=== PATIENT | male | born 1970 | race Caucasian/White ===

== ENCOUNTER 2019-04-12 19:14 | Emergency (ER) | payer MEDICAID, OTHER ==
[~2019-04-12] VITALS: Ht 170.2 cm; Wt 81.6 kg
[2019-04-12 19:39] LABS: BASOPHILS # (AUTO) 0.3 /CMM (0.0-0.2); EOSINOPHILS % (AUTO) 4.5 % (0.0-6.0); HEMATOCRIT 33 % (39-51); HEMOGLOBIN 10.3 g/dL (13.5-17.5); LYMPHOCYTES # (AUTO) 1.8 /CMM (0.8-4.8); LYMPHOCYTES % (AUTO) 28.1 % (20.0-44.0); MEAN CORPUSCULAR HGB CONC 32 g/dl (31.0-36.0); MEAN CORPUSCULAR VOLUME 87 fL (80-96); MONOCYTES # (AUTO) 0.5 /CMM (0.1-1.30); MONOCYTES % (AUTO) 7.4 % (2.0-12.0); NEUTROPHILS # (AUTO) 3.6 /CMM (1.8-8.9); PLATELET COUNT (AUTO) 305 /CMM (150-450); RED BLOOD CELL COUNT(AUTO) 3.76 MIL/uL (4.5-6.0); WHITE BLOOD COUNT (AUTO) 6.5 K/uL (4.3-11.0)
[2019-04-12 19:45] LABS: CALCIUM, SERUM 8.2 mg/dL (8.5-10.1); CREATININE 0.8 mg/dL (0.6-1.3); POTASSIUM 3.5 mmol/L (3.5-5.1)
[2019-04-12 19:53] LABS: ALBUMIN 3.5 g/dL (3.4-5.0); BILIRUBIN,DIRECT 0.1 mg/dL (0.0-0.2); BILIRUBIN,TOTAL 0.2 mg/dL (0.2-1.0); SALICYLATE 3.6 mg/dL (2.8-20.0); TOTAL PROTEIN, SERUM 7.8 g/dL (6.4-8.2)
[2019-04-12 20:20] LABS: APPEARANCE,URINE Clear (CLEAR); BILIRUBIN,URINE Negative (NEGATIVE); BLOOD, URINE Negative Ery/uL (NEGATIVE); COLOR,URINE Yellow (YELLOW); KETONES,URINE Negative (NEGATIVE); LEUKOCYTE ESTERASE ,URINE Negative (NEGATIVE); NITRITE, URINE Negative (NEGATIVE); PH,URINE 6.5 (5.0-8.0); PROTEIN,URINE Negative (NEGATIVE); UGLUCOSE Negative (NEGATIVE); UROBILINOGEN,URINE 0.2 EU/dL (0.2)
--- NOTE | 2019-04-12 20:21 | NUR ---
URINE COLLECTED AND SENT TO LAB.
--- NOTE | 2019-04-12 20:48 | NUR ---
PTS BLACK BACKPACK PLACED IN UTILITY ROOM
--- NOTE | 2019-04-13 00:42 | NUR ---
Patient is resting comfortably in bed with eyes closed. Easily aroused. VSS. GIVEN FOOD AND DRINK. -ACUTE DISTRESS NOTED AT THIS TIME.
--- NOTE | 2019-04-13 02:11 | NUR ---
Patient is resting comfortably in bed with eyes closed. Easily aroused. VSS. -ACUTE DISTRESS NOTED AT THIS TIME.
--- NOTE | 2019-04-13 04:44 | NUR ---
Patient is resting comfortably in bed with eyes closed. Easily aroused. VSS. -SOB NOTED. AOX4.
--- NOTE | 2019-04-13 05:14 | NUR ---
PATIENT VERBALIZING "I WANT TO GO HOME, IM NOT SUICIDAL WHAT ARE YOU TALKING ABOUT" ER MD AWARE. PT ALERT ORIENTED X4. AMBULATORY WITHOUT ASSISTANCE.
--- NOTE | 2019-04-13 05:30 | NUR ---
Patient discharged to home in stable condition. Written and verbal after care instructions given. Patient verbalizes understanding of instruction. Pt ambulatory with a steady gait
[2019-04-13 06:17] VITALS: BP 142/78
== END 2019-04-13 05:32 | disposition home or self-care (01) ==
LOC: EDBD 19:16 → ER 19:16
DX: F10.129 Alcohol abuse with intoxication, unspecified (principal); Y90.8 Blood alcohol level of 240 mg/100 ml or more
CPT/HCPCS: 36415; 80048; 80076; 80305; 80307; 80329; 81001; 85025; 99283; G0480; 81000-TC

== ENCOUNTER 2019-04-15 00:16 | Emergency (ER) | payer MEDICAID ==
[~2019-04-15] VITALS: Ht 170.2 cm; Wt 81.6 kg
[2019-04-15] MEDS ORDERED: LORAZEPAM INJ 2 MG/ML VIAL ONE (00:25)
[2019-04-15] MEDS ORDERED: LORAZEPAM INJ 2 MG/ML VIAL IM ONE (00:30)
--- NOTE | 2019-04-15 00:37 | NUR ---
urine collected and sent to lab
--- NOTE | 2019-04-15 00:43 | NUR ---
PATIENT ANITA HORNE ESCORTED BY [employer] TO ER BED 9 FOR ETOH. PATIENT STATES THAT HE WANTS TO KILL HIMSELF. PATIENT CANNOT RECALL THE AMOUNT OF DRINKS HAD PRIOR TO BEING ARRESTED OFF THE STREETS. PATIENT DOES NOT HAVE A SUICIDAL PLAN. NO SOB. BREATHING EVENLY AND UNLABORED. CONNECTED TO MONITOR.
[2019-04-15 00:49] LABS: APPEARANCE,URINE Clear (CLEAR); BILIRUBIN,URINE Negative (NEGATIVE); BLOOD, URINE Negative Ery/uL (NEGATIVE); COLOR,URINE Light yellow (YELLOW); KETONES,URINE Negative (NEGATIVE); LEUKOCYTE ESTERASE ,URINE Negative (NEGATIVE); NITRITE, URINE Negative (NEGATIVE); PROTEIN,URINE Negative (NEGATIVE); UGLUCOSE Negative (NEGATIVE); UROBILINOGEN,URINE 0.2 EU/dL (0.2)
[2019-04-15 00:52] LABS: BASOPHILS # (AUTO) 0.2 /CMM (0.0-0.2); BASOPHILS % (AUTO) 2.6 % (0.0-2.0); EOSINOPHILS % (AUTO) 4.5 % (0.0-6.0); HEMATOCRIT 34 % (39-51); HEMOGLOBIN 10.7 g/dL (13.5-17.5); LYMPHOCYTES # (AUTO) 2.2 /CMM (0.8-4.8); LYMPHOCYTES % (AUTO) 31.5 % (20.0-44.0); MEAN CORPUSCULAR HGB CONC 32 g/dl (31.0-36.0); MEAN CORPUSCULAR VOLUME 86 fL (80-96); MONOCYTES # (AUTO) 0.7 /CMM (0.1-1.30); NEUTROPHILS # (AUTO) 3.6 /CMM (1.8-8.9); NEUTROPHILS % (AUTO) 51.4 % (43.0-81.0); PLATELET COUNT (AUTO) 277 /CMM (150-450); RED BLOOD CELL COUNT(AUTO) 3.94 MIL/uL (4.5-6.0); WHITE BLOOD COUNT (AUTO) 7.1 K/uL (4.3-11.0)
[2019-04-15 01:01] LABS: CALCIUM, SERUM 8.8 mg/dL (8.5-10.1); CREATININE 0.8 mg/dL (0.6-1.3); POTASSIUM 3.7 mmol/L (3.5-5.1)
--- NOTE | 2019-04-15 01:05 | NUR ---
PATIENT IS SLEEPING COMFORTABLY IN BED. CONNECTED TO MONITOR. DOES NOT APPEAR TO BE IN ANY DISTRESS. EASILY AROUSED BY TACTILE AND VERBAL STIMULI
[2019-04-15 01:13] LABS: ALBUMIN 3.7 g/dL (3.4-5.0); BILIRUBIN,DIRECT 0.1 mg/dL (0.0-0.2); BILIRUBIN,TOTAL 0.2 mg/dL (0.2-1.0); SALICYLATE 2.7 mg/dL (2.8-20.0); TOTAL PROTEIN, SERUM 8.2 g/dL (6.4-8.2)
--- NOTE | 2019-04-15 03:43 | NUR ---
PATIENT IS SLEEPING COMFORTABLY IN BED 9. EASILY AROUSABLE THROUGH TACTILE AND VERBAL STIMULI. BREATHING EVENLY AND UNLABORED. CONNECTED TO MONITOR.
--- NOTE | 2019-04-15 05:18 | NUR ---
patient is asleep. breathing evenly and unlabored. no sob not in any pain or distress. connected to monitor. call light within reach.
--- NOTE | 2019-04-15 07:23 | NUR ---
report given to Gary MARX for ANTWON.
--- NOTE | 2019-04-15 07:29 | NUR ---
ASSESSED PT ON BED ASLEEP, EASILY AROUSABLE, NOT IN RESPIRATORY DISTRESS, V/S STABLE, KEPT RESTED AND COMFORTABLE, WILL CONTINUE TO MONITOR.
--- NOTE | 2019-04-15 09:08 | NUR ---
PT ASSESSED ON BED EASILY AROUSABLE, NOT IN RESPIRATORY DISTRESS, V/S STABLE, UNABLE TO STAND AND WALK STRAIGHT MD AWARE, WILL CONTINUE TO MONITOR.
[2019-04-15 11:30] VITALS: BP 133/91
--- NOTE | 2019-04-15 11:30 | NUR ---
Patient given written and verbal discharge instructions. Patient verbalizes understanding of instructions. Patient is ambulatory with steady gait. Refuses offer of nursing home placement. Patient given list of available shelters in surrounding area.
== END 2019-04-15 11:32 | disposition home or self-care (01) ==
LOC: ER 00:19
DX: F10.129 Alcohol abuse with intoxication, unspecified (principal); Y90.8 Blood alcohol level of 240 mg/100 ml or more
CPT/HCPCS: 36415; 80048; 80076; 80305; 80307; 80329; 81001; 85025; 96372; 99283; G0480; J2060; 81000-TC

== ENCOUNTER 2020-01-28 18:43 | Inpatient (IN) | payer MEDICAID ==
[~2020-01-28] VITALS: Ht 175.3 cm; Wt 83.5 kg
--- NOTE | 2020-01-28 18:53 | NUR ---
INGESTION 5 HOURS + AT THE ARRIVAL TIME.... CALLED POISON CONTROL [phone] LISBETH OBSERVATION FOR 12 HOURS POST INGESTION. GET 2 EKG ONCE AT ARRIVAL AND IF NORMAL ONCE TOWARDS THE END OF STAY. IN HIGH DOSES LOOK FOR SEIZURE ACTIVITY, CAN BE TREATED WITH BENZO'S.
--- NOTE | 2020-01-28 18:54 | NUR ---
BIB [address] AND [employer] OFFICERS, PLACED ON HOLD BY PET TEAM FOR SI,TOOK 15 TABS OF LEXAPRO 5 HRS AGO(UNK DOSE) AND WANTS TO RUN INTO TRAFFIC, TO ER BED 14, HOOKED TO MONITOR, CHANGED TO HOSP GOWN, WARM BLANKET PROVIDED, PATIENT AAO x 4, BREATHING EVEN AND UNLABORED, SUICIDE PRECAUTIONS APPLIED. DR LUI AT BEDSIDE
--- NOTE | 2020-01-28 18:55 | NUR ---
1:1 SITTER AT BEDSIDE FOR SAFETY
--- NOTE | 2020-01-28 19:07 | NUR ---
SECURITY AT BEDSIDE FOR WANDING
--- NOTE | 2020-01-28 19:10 | NUR ---
CALLED FOR COVID SWAB
--- NOTE | 2020-01-28 19:17 | NUR ---
xray at bedside for xray
--- NOTE | 2020-01-28 19:20 | NUR ---
COVID SWAB COLLECTED, CALLED LAB FOR DINING CAR WAITER/WAITRESS
[2020-01-28] MEDS ORDERED: LORAZEPAM INJ 2 MG/ML VIAL ONE (19:22)
--- NOTE | 2020-01-28 19:23 | NUR ---
SPOKE TO PT REGARDING PROVIDING URINE SAMPLE, PT STATED UNABLE TO AT THE MOMENT.
[2020-01-28] MEDS ORDERED: LORAZEPAM INJ 2 MG/ML VIAL IV ONE (19:30)
[2020-01-28] MEDS ORDERED: IV NS 0.9% 1,000 ML BAG IV ONE (19:30)
[2020-01-28 19:31] LABS: BASOPHILS # (AUTO) 0.1 /CMM (0.0-0.2); BASOPHILS % (AUTO) 2.1 % (0.0-2.0); EOSINOPHILS % (AUTO) 4.3 % (0.0-6.0); HEMATOCRIT 37 % (39-51); HEMOGLOBIN 12.6 g/dL (13.5-17.5); LYMPHOCYTES % (AUTO) 44.1 % (20.0-44.0); MEAN CORPUSCULAR HGB CONC 34 g/dl (31.0-36.0); MEAN CORPUSCULAR VOLUME 93 fL (80-96); MONOCYTES # (AUTO) 0.5 /CMM (0.1-1.30); MONOCYTES % (AUTO) 7.1 % (2.0-12.0); NEUTROPHILS # (AUTO) 2.9 /CMM (1.8-8.9); NEUTROPHILS % (AUTO) 42.4 % (43.0-81.0); PLATELET COUNT (AUTO) 341 /CMM (150-450); WHITE BLOOD COUNT (AUTO) 6.9 K/uL (4.3-11.0)
--- NOTE | 2020-01-28 19:36 | NUR ---
urine collected and sent to lab.
[2020-01-28 19:49] LABS: APPEARANCE,URINE CLEAR (CLEAR); BILIRUBIN,URINE NEGATIVE (NEGATIVE); BLOOD, URINE NEGATIVE Ery/uL (NEGATIVE); COLOR,URINE YELLOW (YELLOW); KETONES,URINE NEGATIVE (NEGATIVE); LEUKOCYTE ESTERASE ,URINE NEGATIVE (NEGATIVE); NITRITE, URINE NEGATIVE (NEGATIVE); PH,URINE 5.5 (5.0-8.0); PROTEIN,URINE NEGATIVE (NEGATIVE); UGLUCOSE NEGATIVE (NEGATIVE); UROBILINOGEN,URINE 0.2 EU/dL (0.2)
--- NOTE | 2020-01-28 19:50 | NUR ---
ADMISSION PACKET TURNED IN
--- NOTE | 2020-01-28 20:13 | NUR ---
REC'D NEG COVID RESULTS. AWARE
[2020-01-28 20:29] LABS: ALANINE AMINOTRANSFERASE 37 U/L (12-78); ALBUMIN 3.6 g/dL (3.4-5.0); ALCOHOL, BLOOD 257 mg/dL (0-0); ALKALINE PHOSPHATASE 99 U/L (46-116); ASPARTATE AMINOTRANSFERASE 24 U/L (15-37); BILIRUBIN,TOTAL 0.2 mg/dL (0.2-1.0)
--- NOTE | 2020-01-28 20:30 | NUR ---
SPOKE WITH PERMACULTURE CONTRACTOR SAMIA REGARDING CLINICAL INFORMATION
[2020-01-28 20:42] LABS: CARBON DIOXIDE 21 mmol/L (21-32); CHLORIDE 103 mmol/L (98-107); CREATININE 0.9 mg/dL (0.6-1.3); GLUCOSE 99 mg/dL (74-106); POTASSIUM 3.3 mmol/L (3.5-5.1); SODIUM SERUM 140 mmol/L (136-145); UREA NITROGEN, BLOOD 8 mg/dL (7-18)
[2020-01-28 20:44] LABS: SALICYLATE 1.2 mg/dL (2.8-20.0)
[2020-01-28 20:46] LABS: ACETAMINOPHEN < 2 ug/ml (10-30)
--- NOTE | 2020-01-28 21:56 | NUR ---
LUCA HENSLEY SPEAKING WITH DR. LLOYD (LISSETH MINER)
--- NOTE | 2020-01-28 22:05 | NUR ---
CALLED NURSING SUP FOR BED
--- NOTE | 2020-01-28 22:11 | NUR ---
LUCA HENSLEY SPEAKING WITH DR. WHITE REGARDING ADMISSION
--- NOTE | 2020-01-28 23:34 | NUR ---
SPOKE WITH LISBETH FROM POISON CONTROL, GAVE CLINICAL INFORMATION. PER LISBETH, CASE WITH POISON CONTROL CLOSED AT THIS TIME.
--- NOTE | 2020-01-29 01:29 | NUR ---
PATIENT IS SLEEPING. EASILY AROUSABLE THROUGH VERBAL AND TACTILE STIMULI. BREATHING EVENLY AND UNLABORED ON ROOM AIR. CONNECTED TO THE MONITOR. SITTER AT BEDSIDE.
--- NOTE | 2020-01-29 02:43 | NUR ---
PT RESTING COMFORTBALY. VSS.
--- NOTE | 2020-01-29 05:04 | NUR ---
PT RESTING COMFORTABLY IN BED. VSS. NO ACUTE DISTRESS NOTED. SITTER AT BEDSIDE FOR SAFETY. CALL LIGHT WITHIN REACH
--- NOTE | 2020-01-29 06:12 | NUR ---
BED ASSIGNMENT 311-1
--- NOTE | 2020-01-29 06:55 | NUR ---
REPORT GIVEN TO ARASELI OBANDO FOR ANTWON
--- NOTE | 2020-01-29 07:20 | NUR ---
PT TRANSFERRED PER [facility]
[2020-01-29 07:40] VITALS: BP 128/74
--- NOTE | 2020-01-29 07:40 | NUR ---
MS RN NOTES ADMITTED PATIENT FROM ER, REPORT GIVEN BY PRAVEEN MARX. PATIENT ALERT ORIENTED X 3. NO ACUTE DISTRESS NOTED. BREATHING UNLABORED. NO SOB NOTED. ORIENTED TO THE ROOM. SAFETY MEASURES IN PLACE. SITTER AT BEDSIDE. PLACED ON SIDE DOOR MAN, SINUS RHYTHM.
--- NOTE | 2020-01-29 08:24 | NUR ---
MS RN NOTES PATIENT SEEN AND EVALUATED BY DR WHITE WITH NEW ORDERS MADE
[2020-01-29 08:59] LABS: BASOPHILS # (AUTO) 0.1 /CMM (0.0-0.2); BASOPHILS % (AUTO) 1.1 % (0.0-2.0); EOSINOPHILS % (AUTO) 4.2 % (0.0-6.0); HEMATOCRIT 38 % (39-51); HEMOGLOBIN 12.3 g/dL (13.5-17.5); LYMPHOCYTES # (AUTO) 1.5 /CMM (0.8-4.8); MEAN CORPUSCULAR HGB CONC 33 g/dl (31.0-36.0); MEAN CORPUSCULAR VOLUME 92 fL (80-96); MONOCYTES # (AUTO) 0.5 /CMM (0.1-1.30); MONOCYTES % (AUTO) 7.2 % (2.0-12.0); NEUTROPHILS # (AUTO) 4.2 /CMM (1.8-8.9); NEUTROPHILS % (AUTO) 64.5 % (43.0-81.0); PLATELET COUNT (AUTO) 335 /CMM (150-450); RED BLOOD CELL COUNT(AUTO) 4.07 MIL/uL (4.5-6.0); WHITE BLOOD COUNT (AUTO) 6.5 K/uL (4.3-11.0)
[2020-01-29] MEDS ORDERED: *INSULIN REGULAR(HUMULIN R)HUM 100 UNIT/ML VIAL SQ PRN (09:00)
[2020-01-29] MEDS ORDERED: ACETAMINOPHEN 325 MG TABLET PO PRN (09:00)
[2020-01-29] MEDS ORDERED: DEXTROSE 50%-WATER 50 ML DISP.SYRIN IV PRN (09:00)
[2020-01-29] MEDS ORDERED: INSULIN REGULAR, HUMAN 100 UNIT/ML 3 ML VIAL SQ PRN (09:00)
[2020-01-29 09:08] LABS: CALCIUM, SERUM 8.1 mg/dL (8.5-10.1); CREATININE 0.8 mg/dL (0.6-1.3); POTASSIUM 3.7 mmol/L (3.5-5.1)
[2020-01-29 09:13] LABS: ALBUMIN 3.4 g/dL (3.4-5.0); BILIRUBIN,TOTAL 0.5 mg/dL (0.2-1.0); TOTAL PROTEIN, SERUM 7.6 g/dL (6.4-8.2)
[2020-01-29] MEDS: BLOOD SUGAR DIAGNOSTIC 1 EACH STRIP VI SCH ×3 (12:39→22:05)
--- NOTE | 2020-01-29 14:45 | NUR ---
Toolmaker with the Assistance of Rosa M (Intake) [phone] faxed over clinicals and [phone] hold for psychiatric placement for this patient.
--- NOTE | 2020-01-29 19:00 | NUR ---
MS RN NOTES PATIENT IN BED ALERT ORIENTED X 3 . NO ACUTE DISTRESS NOTED. BREATHING UNLABORED. NO SOB NOTED. IV ACCESS PATENT AND INTACT, NO REDNESS, NO BLEEDING, NO SWELLING NOTED. NEEDS ATTENDED AND ANTICIPATED. SAFETY MEASURES IN PLACE. SITTER AT BEDSIDE.
--- NOTE | 2020-01-29 19:00 | NUR ---
MS RN NOTES WILL ENDORSE TO NIGHT NURSE FOR CONTINUITY OF CARE
--- NOTE | 2020-01-29 19:30 | NUR ---
TELERN FULLY AWAKE, SITTER AT BEDSIDE. PATIENT WANTED TO TAKE MED FOR HIS ANXIETY. REVIEWED WITH PATIENT MEDICATION REGIMEN AND PLAN OF CARE. APPEARS TO UNDERSTAND. NO OTHER NEEDS MADE. KEPT COMFORTABLE. SR ON THE MONITOR.PATIENT ON 5150 HOLD OF THIS TIME. PENDING BED AVAILABILITY , POSSIBLE DC TO [facility] ONCE BED AVAILABLE. PATIENT CALM, COOPERATIVE OF THIS TIME. CONTINUED.
--- NOTE | 2020-01-29 20:00 | NUR ---
MSRN RECEIVED CALL FROM KYLER , STATED PATIENT HAS BED AVAILABLE AT [facility]. INFORMED KYLER WAS CLEARED BY DR. WELLINGTON, PER HIS NOTES CAN GO TO PSYCH FACILITY ONCE MEDICALLY CLEARED. NO DC SUMMARY YET FROM DR. WHITE. TO CONTINUE.
--- NOTE | 2020-01-29 20:25 | NUR ---
TELERN RECEIVED CALL FROM ANALI BOURNE OF [facility], STATED THEY HAVE BED AND WILL TAKE REPORT ONCE ALL PAPERWORKS ARRANGED. PER CHARGE NURSE TY OF [facility], WILL TAKE PATIENT ONCE DC SUMMARY IS DONE AND NEED ALL PAPERWORKS COMPLETED. PER TY CAN TAKE PATIENT TONIGHT OR TOMORROW MORNING WITH DC SUMMARY.
--- NOTE | 2020-01-29 20:35 | NUR ---
TELERN PLACED CALL TO DR WHITE REGARDING DC SUMMARY. STATED THEY WILL CALL BACK AND WILL TRY TO REACH DR. WHITE.
--- NOTE | 2020-01-29 20:40 | NUR ---
TELERN RECEIVED CALL FROM SATHYA , STATED PER DR. CINDY MINER ALREADY SIGNED OFF AND DR WELLINGTON WILL TAKE OVER SINCE 5150 WAS DONE BY [employer]. PER SATHYA WELLINGTON TO DO DC SUMMARY. PLACED CALL TO DR WELLINGTON . CALLED [employer] FOR ANOTHER NUMBER OF DR WELLINGTON SAME NUMBER PROVIDED BY [employer] .
--- NOTE | 2020-01-29 20:50 | NUR ---
TELERN PLACED CALL TO KYLER, INFORMED INFO FROM [facility] REGARDING DC SUMMARY . NO RETURN CALL YET FROM DR WELLINGTON, PER GPS MD COMES BETWEEN 9 AND 10 AM. POSSIBLE DC TOMORROW AM ONCE DC SUMMARY OF DR WELLINGTON AVAILABLE.
[2020-01-29 22:00] VITALS: BP 136/82
--- NOTE | 2020-01-29 23:15 | NUR ---
TELERN PATIENT TOOK OFF HIS TELE, REFUSED. HL OUT, STATED WILL AGREE TO HAVE IT REINSERTED IN THE MORNING. NEEDS CLOSER OBSERVATION. ON SUICIDAL WATCHED. SITTER AT BEDSIDE.
--- NOTE | 2020-01-30 06:30 | NUR ---
TELERN DC TODAY ONCE DC SUMMARY DICTATED BY PSYCHIATRIST. WILL ENDORSE TO INCOMING RN.
[2020-01-30] MEDS: BLOOD SUGAR DIAGNOSTIC 1 EACH STRIP VI SCH ×3 (06:58→17:18)
--- NOTE | 2020-01-30 07:15 | NUR ---
MS RN NOTES PATIENT IN BED ALERT ORIENTED X 3 . NO ACUTE DISTRESS NOTED. BREATHING UNLABORED. NO SOB NOTED. SAFETY MEASURES IN PLACE. SITTER AT BEDSIDE. WILL CONTINUE TO MONITOR.
[2020-01-30] MEDS ORDERED: ESCITALOPRAM OXALATE (10 MG) 10 MG TABLET PO SCH (09:00)
--- NOTE | 2020-01-30 18:42 | NUR ---
MS RN NOTES PATIENT IN BED ALERT ORIENTED X 3 . NO ACUTE DISTRESS NOTED. BREATHING UNLABORED. NO SOB NOTED. NEEDS ATTENDED AND ANTICIPATED. SAFETY MEASURES IN PLACE. SITTER AT BEDSIDE. PATIENT FOR DISCHARGE TO [facility], REPORT GIVEN TO JEROMY MARX. WILL ENDORSE TO NIGHT NURSE FOR CONTINUITY OF CARE AND DISCHARGE.
[2020-01-30 19:30] VITALS: BP 137/91
--- NOTE | 2020-01-30 19:33 | NUR ---
DC NOTES: AMBULANCE CAME TO DESIGN ANALYST PT. DAY ARASELI FLAHERTY GIVEN REPORT TO KAYLAH MARX. PT GOING TO [facility] ROOM 129-C. ALL DC PAPER WORKS HANDED OVER TO EMT, INCLUDING ORIGINAL HOLD PAPERS. BELONGINGS HANDED OVER TO EMT, INVENTORY OF BELONGINGS SIGNED COMPLETED.IV ACCESS REMOVED BY DAY RN. PRESSURED DRESSING APPLIED. ARMBAND REMOVED. DC PAPER WORKS SIGNED AND COMPLETED . PT MEDICALLY CLEARED FOR DC. VS TAKEN AND RECORD. PT LEFT THE UNIT VIA AMBULANCE .
== END 2020-01-30 19:37 | disposition home or self-care (01) | DRG 812 ==
LOC: ER 18:45 → TELE 01-29 06:36 → MED 01-30 08:26
PROVIDERS: ADMIT Internal Medicine; ATTEND Internal Medicine
DX: T43.221A Poisoning by selective serotonin reuptake inhibitors, accidental (unintentional), initial encounter (principal); Y92.410 Unspecified street and highway as the place of occurrence of the external cause; Y90.8 Blood alcohol level of 240 mg/100 ml or more; E11.9 Type 2 diabetes mellitus without complications; R45.851 Suicidal ideations; Z79.4 Long term (current) use of insulin; F32.9 Major depressive disorder, single episode, unspecified
CPT/HCPCS: 36415; 71045-TC; 80048-TC; 80053-TC; 80076-TC; 80305; 81000-TC; 82962-TC; 83735-TC; 85025-TC; 87081-TC; C9803-CS; G0378; G0480; J1815; J2060; J7030

== ENCOUNTER 2020-02-20 13:08 | Emergency (ER) | payer MEDICAID ==
[~2020-02-20] VITALS: Ht 175.3 cm; Wt 81.6 kg
--- NOTE | 2020-02-20 13:12 | NUR ---
pt bibra from the streets to er bed 14. per ems report, pt is stating "im a loser and suicidal" pt is refusing to talk to Ed staff. appears intoxicated. 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 stable vitals.
--- NOTE | 2020-02-20 13:26 | NUR ---
pt wanded. half bottle full alcoholic beverage found in patients pocket. gowned, belongings to safe locker.
[2020-02-20 13:46] LABS: BASOPHILS # (AUTO) 0.2 /CMM (0.0-0.2); BASOPHILS % (AUTO) 2.6 % (0.0-2.0); EOSINOPHILS % (AUTO) 1.9 % (0.0-6.0); HEMATOCRIT 40 % (39-51); HEMOGLOBIN 13.1 g/dL (13.5-17.5); LYMPHOCYTES # (AUTO) 2.7 /CMM (0.8-4.8); LYMPHOCYTES % (AUTO) 46.3 % (20.0-44.0); MEAN CORPUSCULAR HGB CONC 33 g/dl (31.0-36.0); MEAN CORPUSCULAR VOLUME 91 fL (80-96); MONOCYTES # (AUTO) 0.3 /CMM (0.1-1.30); MONOCYTES % (AUTO) 5.6 % (2.0-12.0); NEUTROPHILS # (AUTO) 2.5 /CMM (1.8-8.9); NEUTROPHILS % (AUTO) 43.6 % (43.0-81.0); PLATELET COUNT (AUTO) 359 /CMM (150-450); RED BLOOD CELL COUNT(AUTO) 4.37 MIL/uL (4.5-6.0); WHITE BLOOD COUNT (AUTO) 5.8 K/uL (4.3-11.0)
[2020-02-20 13:59] LABS: CREATININE 0.9 mg/dL (0.6-1.3); POTASSIUM 3.3 mmol/L (3.5-5.1)
[2020-02-20 14:07] LABS: ALBUMIN 3.7 g/dL (3.4-5.0); BILIRUBIN,DIRECT 0.1 mg/dL (0.0-0.2); BILIRUBIN,TOTAL 0.3 mg/dL (0.2-1.0); TOTAL PROTEIN, SERUM 7.9 g/dL (6.4-8.2)
--- NOTE | 2020-02-20 15:08 | NUR ---
rapid covid swab done and sent to lab
[2020-02-20 15:11] LABS: APPEARANCE,URINE CLEAR (CLEAR); BILIRUBIN,URINE NEGATIVE (NEGATIVE); BLOOD, URINE TRACE-INTA Ery/uL (NEGATIVE); COLOR,URINE YELLOW (YELLOW); KETONES,URINE NEGATIVE (NEGATIVE); LEUKOCYTE ESTERASE ,URINE NEGATIVE (NEGATIVE); NITRITE, URINE NEGATIVE (NEGATIVE); PROTEIN,URINE NEGATIVE (NEGATIVE); UGLUCOSE NEGATIVE (NEGATIVE); UROBILINOGEN,URINE 0.2 EU/dL (0.2)
[2020-02-20 15:19] LABS: BACTERIA,URINE None seen /HPF (None Seen); SQUAMOUS EPITHELIAL CELL,UR 0-2 /HPF (None Seen); WBC,URINE 0-2 /HPF (0-3)
--- NOTE | 2020-02-20 15:46 | NUR ---
Received a call from the lab regarding covid 19 result "negative"
--- NOTE | 2020-02-20 19:45 | NUR ---
ASSUMED CARE FOR THIS PT
--- NOTE | 2020-02-20 19:47 | NUR ---
PT AAOX4, VSS, RESPIRATIONS EVEN AND UNLABORED W/ NAD NOTED. PT CONNECTED TO THE VICE PRESIDENT QUALITY AND POX. SITTER AT BEDSIDE FOR SAFETY. CALL LIGHT WITHIN REACH.
[2020-02-21] MEDS ORDERED: ACETAMINOPHEN ES 500 MG TABLET ONE (06:45)
[2020-02-21] MEDS ORDERED: ACETAMINOPHEN ES 500 MG TABLET PO ONE (07:00)
--- NOTE | 2020-02-21 09:39 | NUR ---
called [facility] trin[facility]. spoke to shabbir. no new update. at this time.
--- NOTE | 2020-02-21 11:41 | NUR ---
Contated [facility] intake and spoke with olaf. requested nurse to fax clinicals again to put patient on wait list
--- NOTE | 2020-02-21 14:39 | NUR ---
pt admitted to [facility] dr nguyen/ dr alfredo number for report: [phone] ext [phone] bed will be ready at 1900, [facility] will arrange transport.
--- NOTE | 2020-02-21 14:51 | NUR ---
REPORT GIVEN TO NEREIDA MARX OF [facility], INSTRUCT AMBULANCE TO DROP BY ER DEPT
--- NOTE | 2020-02-21 18:58 | NUR ---
[facility] called. new eta 193
--- NOTE | 2020-02-21 19:46 | NUR ---
PATIENT PICKED UP BY [facility] IN STABLE CONDITION. PATIENT WILL BE BROUGHT TO [facility]. INSTRUCTED TO DROP BY ER FIRST. CLINICALS PROVIDED TO EMS.
[2020-02-21 19:48] VITALS: BP 128/71
== END 2020-02-21 19:49 ==
LOC: ER 13:14
DX: R45.851 Suicidal ideations (principal); F10.129 Alcohol abuse with intoxication, unspecified; Y90.8 Blood alcohol level of 240 mg/100 ml or more; E11.9 Type 2 diabetes mellitus without complications; Z20.828 Contact with and (suspected) exposure to other viral communicable diseases
CPT/HCPCS: 36415 ×2; 80048; 80076; 80299; 80307 ×2; 80320 ×2; 81001; 85025; 87426; 99285; C9803; 81000-TC; G0480

== ENCOUNTER 2020-08-12 17:01 | Emergency (ER) | payer MEDICAID, OTHER ==
[~2020-08-12] VITALS: Ht 167.6 cm; Wt 81.2 kg
--- NOTE | 2020-08-12 17:20 | NUR ---
LISSETTE WILDE From" [employer] Intoxicated/was saying he wants to kill himself". The patient denies SI/HI at this time. Alert x1. Able to communicate verbally. Denies pain. In room air and denies SOB. Respiration regular and unlabored. The patient is attached on a monitor. Will continue to monitor.
--- NOTE | 2020-08-12 17:49 | NUR ---
patient taken to CT
--- NOTE | 2020-08-12 17:55 | NUR ---
the patient back from ct
[2020-08-12 17:57] LABS: BASOPHILS # (AUTO) 0.2 /CMM (0.0-0.2); BASOPHILS % (AUTO) 3.6 % (0.0-2.0); EOSINOPHILS % (AUTO) 3.3 % (0.0-6.0); HEMATOCRIT 39 % (39-51); HEMOGLOBIN 12.8 g/dL (13.5-17.5); LYMPHOCYTES # (AUTO) 2.6 /CMM (0.8-4.8); LYMPHOCYTES % (AUTO) 55.8 % (20.0-44.0); MEAN CORPUSCULAR HGB CONC 33 g/dl (31.0-36.0); MEAN CORPUSCULAR VOLUME 91 fL (80-96); MONOCYTES # (AUTO) 0.2 /CMM (0.1-1.30); MONOCYTES % (AUTO) 4.5 % (2.0-12.0); NEUTROPHILS # (AUTO) 1.5 /CMM (1.8-8.9); NEUTROPHILS % (AUTO) 32.8 % (43.0-81.0); PLATELET COUNT (AUTO) 423 /CMM (150-450); RED BLOOD CELL COUNT(AUTO) 4.23 MIL/uL (4.5-6.0); WHITE BLOOD COUNT (AUTO) 4.7 K/uL (4.3-11.0)
[2020-08-12 18:10] LABS: ALANINE AMINOTRANSFERASE 25 U/L (12-78); ALBUMIN 3.7 g/dL (3.4-5.0); ALCOHOL, BLOOD 394 mg/dL (0-0); ALKALINE PHOSPHATASE 95 U/L (46-116); ASPARTATE AMINOTRANSFERASE 26 U/L (15-37); BILIRUBIN,DIRECT 0.1 mg/dL (0.0-0.2); BILIRUBIN,TOTAL 0.3 mg/dL (0.2-1.0)
[2020-08-12 18:17] LABS: ACETAMINOPHEN 0 ug/ml (10-30)
[2020-08-12 19:01] LABS: CALCIUM, SERUM 8.1 mg/dL (8.5-10.1); CREATININE 0.9 mg/dL (0.6-1.3); POTASSIUM 3.5 mmol/L (3.5-5.1)
--- NOTE | 2020-08-12 19:56 | NUR ---
covid swab sent to lab
--- NOTE | 2020-08-12 20:50 | NUR ---
Satinder salazar in [facility] - 08/12/20 at [address] GARNER'S EXCHANGE ADMITS PT TO [facility].
--- NOTE | 2020-08-12 20:59 | NUR ---
LAB CALLED REGARDING NEGATIVE COVID RESULT.
--- NOTE | 2020-08-12 23:03 | NUR ---
the patient awake, alert and oriented x2. denies pain. respiration regular and unlabored. denies sob.will continue to monitor the patient.
--- NOTE | 2020-08-13 02:48 | NUR ---
PT AAOX4. AWAKE IN BED, DENIES SI AND HI. VSS.
--- NOTE | 2020-08-13 05:01 | NUR ---
Patient discharged to home in stable condition. Written and verbal after care instructions given. Patient verbalizes understanding of instruction. Pt ambulated out of ED. VSS. Denies SI and HI. vss.
[2020-08-13 06:08] VITALS: BP 127/71
== END 2020-08-13 06:08 | disposition home or self-care (01) ==
LOC: ER 17:06
DX: T51.0X1A Toxic effect of ethanol, accidental (unintentional), initial encounter (principal); R41.82 Altered mental status, unspecified; Y92.89 Other specified places as the place of occurrence of the external cause; Z20.822 Contact with and (suspected) exposure to COVID-19; R00.0 Tachycardia, unspecified; E11.9 Type 2 diabetes mellitus without complications; J32.8 Other chronic sinusitis
CPT/HCPCS: 36415; 70450; 71045; 80048; 80076; 80299; 80307; 80320; 84484; 85025; 87426; 93005; 99285; C9803; G0480

== ENCOUNTER 2020-10-07 16:48 | Emergency (ER) | payer OTHER ==
[~2020-10-07] VITALS: Ht 170.2 cm; Wt 72.6 kg
[2020-10-07 17:12] LABS: BASOPHILS # (AUTO) 0.1 /CMM (0.0-0.2); BASOPHILS % (AUTO) 0.9 % (0.0-2.0); EOSINOPHILS % (AUTO) 1.6 % (0.0-6.0); HEMATOCRIT 37 % (39-51); HEMOGLOBIN 12.2 g/dL (13.5-17.5); LYMPHOCYTES # (AUTO) 1.2 /CMM (0.8-4.8); LYMPHOCYTES % (AUTO) 15.2 % (20.0-44.0); MEAN CORPUSCULAR HGB CONC 33 g/dl (31.0-36.0); MEAN CORPUSCULAR VOLUME 100 fL (80-96); MONOCYTES # (AUTO) 0.6 /CMM (0.1-1.30); NEUTROPHILS % (AUTO) 74.3 % (43.0-81.0); PLATELET COUNT (AUTO) 202 /CMM (150-450); RED BLOOD CELL COUNT(AUTO) 3.66 MIL/uL (4.5-6.0); WHITE BLOOD COUNT (AUTO) 8.1 K/uL (4.3-11.0)
[2020-10-07 17:13] LABS: BILIRUBIN,URINE Negative (NEGATIVE); COLOR,URINE YELLOW (YELLOW); LEUKOCYTE ESTERASE ,URINE Negative (NEGATIVE); NITRITE, URINE Negative (NEGATIVE); PH,URINE 6.5 (5.0-8.0); PROTEIN,URINE Negative (NEGATIVE); UGLUCOSE Negative (NEGATIVE); UROBILINOGEN,URINE 0.2 EU/dL (0.2)
[2020-10-07 17:27] LABS: ACETAMINOPHEN < 10 ug/ml (10-30); ALANINE AMINOTRANSFERASE 82 U/L (12-78); ALBUMIN 3.4 g/dL (3.4-5.0); ALCOHOL, BLOOD 436 mg/dL (0-0); ALKALINE PHOSPHATASE 128 U/L (46-116); ASPARTATE AMINOTRANSFERASE 185 U/L (15-37); BILIRUBIN,DIRECT 0.1 mg/dL (0.0-0.2); BILIRUBIN,TOTAL 0.3 mg/dL (0.2-1.0); CALCIUM, SERUM 8.3 mg/dL (8.5-10.1); CARBON DIOXIDE 22 mmol/L (21-32); CHLORIDE 102 mmol/L (98-107); CREATININE 0.8 mg/dL (0.6-1.3); GLUCOSE 166 mg/dL (74-106); POTASSIUM 3.2 mmol/L (3.5-5.1); SODIUM SERUM 140 mmol/L (136-145); TOTAL PROTEIN, SERUM 8.1 g/dL (6.4-8.2); UREA NITROGEN, BLOOD 6 mg/dL (7-18)
--- NOTE | 2020-10-07 19:43 | NUR ---
TOOK OVER PT CARE. PT AAOX4, NAME, , PLACE, AND TIME. AMBULATORY WITH STEADY GAIT. PT DID AMBULATE TO THE SINK AND BACK. PT REQUESTED TO LEAVE THE ED. UPON ASSESSMENT PT DENIED SI AND HI. ER MD AWARE. ER MD STATED HE WANTED TO EVALUATE PT BEFORE DISCHARGE. AWAITING ER MD MAURICIO.
--- NOTE | 2020-10-07 20:47 | NUR ---
PT NOW STATING HE IS DEPRESSED AND SUICIDAL. REQUESTING VOLUNTARY ADMISSION TO [facility]. SI WITH PLAN TO JUMP IN FRONT OF TRAFFIC. -HI.
--- NOTE | 2020-10-07 21:02 | NUR ---
JESSID SWABBED, SENT TO LAB.
--- NOTE | 2020-10-08 01:59 | NUR ---
PT ASLEEP, VSS.
[2020-10-08] MEDS ORDERED: LORAZEPAM 1 MG TABLET ONE (02:39)
[2020-10-08] MEDS ORDERED: LORAZEPAM 1 MG TABLET PO ONE (03:00)
--- NOTE | 2020-10-08 03:34 | NUR ---
PT AMBULATED TO THE NURSING STATION, REQUESTED TO LEAVE. DENIES SI AND HI. ER AWARE.
[2020-10-08 03:45] VITALS: BP 121/73
--- NOTE | 2020-10-08 03:45 | NUR ---
Patient discharged to home in stable condition. Written and verbal after care instructions given. Patient verbalizes understanding of instruction. Pt ambulated out of ED. VSS.
== END 2020-10-08 03:46 | disposition home or self-care (01) ==
LOC: ER 16:49
DX: R45.851 Suicidal ideations (principal); F10.129 Alcohol abuse with intoxication, unspecified; Y90.8 Blood alcohol level of 240 mg/100 ml or more; Z59.0 Homelessness; E87.6 Hypokalemia; R74.02 Elevation of levels of lactic acid dehydrogenase [LDH]; E11.65 Type 2 diabetes mellitus with hyperglycemia; Z20.822 Contact with and (suspected) exposure to COVID-19
CPT/HCPCS: 36415; 80048; 80076; 80143; 80307; 80320; 81003; 85025; 87426; 99285; C9803; G0480